=== PATIENT | female | born 1990 | race Caucasian/White ===

== ENCOUNTER 2017-04-09 15:40 | Inpatient (IN) ==
[2017-04-09] MEDS ORDERED: ONDANSETRON 4 MG/2 ML VIAL IV STA (16:23)
[2017-04-09] MEDS ORDERED: SODIUM CHLORIDE 0.9% 500 ML IV STA (16:23)
[2017-04-09] MEDS ORDERED: ONDANSETRON 4 MG/2 ML VIAL ONE (16:29)
[2017-04-09 16:53] LABS: Basophils # 0.1 10*3/uL (0.0-0.2); Basophils % 0.4 % (0.0-0.8); Eosinophils # 0.2 10*3/uL (0.0-0.87); Eosinophils % 1.1 % (0.00-10.9); Hematocrit 41.7 VOL% (35.7-47.0); Hemoglobin 14.6 GM/DL (12.0-16.0); Immature Granulocytes % 1.3 %; Immature Granulocytes Absolute 0.26 #; Lymphocytes # 2.1 10*3/uL (1.4-4.0); Lymphocytes % 10.8 % (21.3-54.2); Mean Corpuscular Hemoglobin 32 PG (27-34); Mean Corpuscular Volume 91.2 FL (87-102); Mean Platelet Volume 9.6 FL (9.6-12.0); Monocytes # 1.3 10*3/uL (0.11-0.8); Monocytes % 6.7 % (1.7-12.7); Neutrophils # 15.6 10*3/uL (1.4-7.4); Neutrophils % 79.7 % (38.7-73.9); Platelet Count 255 T/CUMM (130-400); Red Blood Count 4.57 MC/CUMM (3.8-5.5); Red Cell Distribution Width 13.1 % (9.3-17.3); White Blood Count 19.6 T/CUMM (4-12)
[2017-04-09 17:08] LABS: Apearance,Urine CLEAR (Clear); Urine Color Yellow (Yellow)
[2017-04-09 17:09] LABS: Bilirubin,Urine Negative (Negative); Blood, Urine Moderate mg/dL (Negative); Glucose,Urine (UA) Negative (Negative); Ketones,Urine Negative (Negative); Mucus,Urine Occasional /LPF (Occasional); Nitrite,Urine Negative (Negative); Protein,Urine 30 MG/DL; RBC,Urine 29 /HPF (0-4); Squamous Epithelial Cell,Urine Occasional /HPF (0-10); Urine Specific Gravity 1.017 (1.001-1.035); WBC,Urine 9 /HPF (0-6)
[2017-04-09 17:30] LABS: Albumin 3.8 G/DL (3.4-5.0); Bilirubin,Total 0.7 MG/DL (0.2-1.0); Calcium 8.7 MG/DL (8.5-10.1); Osmolality,Calculated 277.7 MOS/KG (273-304); Potassium 4.2 MMOL/L (3.5-5.1); Total Protein 7.1 G/DL (6.4-8.3)
[2017-04-09] MEDS: DEXTROSE 5% NACL 0.45% 1,000 ML IV SCH (22:05)
[2017-04-09] MEDS: PIPERACILLIN/TAZOBACTAM 3,375 MG in SODIUM CHLORIDE 0.9% 100 ML IV SCH (22:07)
[2017-04-09] MEDS ORDERED: INFLUENZA VIRUS VACCINE 0.5 ML SYRINGE IM ONE (23:51)
[2017-04-10] MEDS: PIPERACILLIN/TAZOBACTAM 3,375 MG in SODIUM CHLORIDE 0.9% 100 ML IV SCH ×3 (04:55→20:52)
[2017-04-10 08:41] LABS: Basophils # 0.1 10*3/uL (0.0-0.2); Basophils % 0.4 % (0.0-0.8); Eosinophils # 0.5 10*3/uL (0.0-0.87); Eosinophils % 3.9 % (0.00-10.9); Hemoglobin 14.2 GM/DL (12.0-16.0); Immature Granulocytes Absolute 0.12 #; Lymphocytes # 2.3 10*3/uL (1.4-4.0); Lymphocytes % 19.6 % (21.3-54.2); Mean Corpuscular HGB Conc 35.5 GM/DL (32-36); Mean Corpuscular Hemoglobin 32 PG (27-34); Mean Corpuscular Volume 91.1 FL (87-102); Mean Platelet Volume 9.8 FL (9.6-12.0); Monocytes # 0.8 10*3/uL (0.11-0.8); Monocytes % 6.6 % (1.7-12.7); Neutrophils # 8.1 10*3/uL (1.4-7.4); Neutrophils % 68.5 % (38.7-73.9); Platelet Count 254 T/CUMM (130-400); Red Blood Count 4.39 MC/CUMM (3.8-5.5); White Blood Count 11.8 T/CUMM (4-12)
[2017-04-10 08:50] LABS: Albumin 3.5 G/DL (3.4-5.0); Bilirubin,Total 1.6 MG/DL (0.2-1.0); Calcium 8.2 MG/DL (8.5-10.1); Osmolality,Calculated 280.4 MOS/KG (273-304); Potassium 4.1 MMOL/L (3.5-5.1); Total Protein 6.4 G/DL (6.4-8.3)
[2017-04-10] MEDS: ENOXAPARIN 40 MG/0.4 ML SYRINGE SUBCUT SCH (10:48)
[2017-04-10] MEDS: PANTOPRAZOLE 40 MG VIAL IV SCH (10:48)
[2017-04-10] MEDS: DEXTROSE 5% NACL 0.45% 1,000 ML IV SCH ×2 (10:49→17:37)
[2017-04-11] MEDS: DEXTROSE 5% NACL 0.45% 1,000 ML IV SCH ×2 (01:02→10:15)
[2017-04-11] MEDS: PIPERACILLIN/TAZOBACTAM 3,375 MG in SODIUM CHLORIDE 0.9% 100 ML IV SCH ×3 (05:01→22:50)
[2017-04-11] MEDS: ENOXAPARIN 40 MG/0.4 ML SYRINGE SUBCUT SCH (09:02)
[2017-04-11] MEDS: PANTOPRAZOLE 40 MG VIAL IV SCH (09:03)
[2017-04-11 11:52] LABS: Basophils # 0.1 10*3/uL (0.0-0.2); Basophils % 0.7 % (0.0-0.8); Eosinophils # 0.7 10*3/uL (0.0-0.87); Eosinophils % 5.6 % (0.00-10.9); Hematocrit 40.7 VOL% (35.7-47.0); Hemoglobin 14.3 GM/DL (12.0-16.0); Immature Granulocytes % 0.9 %; Lymphocytes # 2.7 10*3/uL (1.4-4.0); Lymphocytes % 23.5 % (21.3-54.2); Mean Corpuscular HGB Conc 35.1 GM/DL (32-36); Mean Corpuscular Hemoglobin 32 PG (27-34); Mean Corpuscular Volume 91.9 FL (87-102); Mean Platelet Volume 10.1 FL (9.6-12.0); Monocytes # 0.8 10*3/uL (0.11-0.8); Monocytes % 6.5 % (1.7-12.7); Neutrophils # 7.3 10*3/uL (1.4-7.4); Neutrophils % 62.8 % (38.7-73.9); Platelet Count 240 T/CUMM (130-400); Red Blood Count 4.43 MC/CUMM (3.8-5.5); White Blood Count 11.6 T/CUMM (4-12)
[2017-04-11 11:59] LABS: PT Patient Result 10.8 SECS
[2017-04-11 12:24] LABS: Albumin 3.5 G/DL (3.4-5.0); Bilirubin,Total 0.6 MG/DL (0.2-1.0); Calcium 8.3 MG/DL (8.5-10.1); Osmolality,Calculated 279.4 MOS/KG (273-304); Potassium 4.2 MMOL/L (3.5-5.1); Total Protein 6.6 G/DL (6.4-8.3)
[2017-04-12 05:46] LABS: Basophils # 0.1 10*3/uL (0.0-0.2); Basophils % 0.4 % (0.0-0.8); Eosinophils # 0.8 10*3/uL (0.0-0.87); Hemoglobin 13.6 GM/DL (12.0-16.0); Immature Granulocytes % 0.6 %; Lymphocytes # 4.1 10*3/uL (1.4-4.0); Lymphocytes % 25.2 % (21.3-54.2); Mean Corpuscular HGB Conc 34.9 GM/DL (32-36); Mean Corpuscular Hemoglobin 32 PG (27-34); Mean Corpuscular Volume 91.5 FL (87-102); Mean Platelet Volume 9.9 FL (9.6-12.0); Monocytes # 0.9 10*3/uL (0.11-0.8); Monocytes % 5.8 % (1.7-12.7); Neutrophils # 10.2 10*3/uL (1.4-7.4); Platelet Count 227 T/CUMM (130-400); Red Blood Count 4.26 MC/CUMM (3.8-5.5); White Blood Count 16.1 T/CUMM (4-12)
[2017-04-12 05:50] LABS: PT Patient Result 10.9 SECS
[2017-04-12] MEDS: PIPERACILLIN/TAZOBACTAM 3,375 MG in SODIUM CHLORIDE 0.9% 100 ML IV SCH ×3 (06:14→21:52)
[2017-04-12] MEDS: DEXTROSE 5% NACL 0.45% 1,000 ML IV SCH ×4 (06:17→21:52)
[2017-04-12 06:25] LABS: Albumin 3.2 G/DL (3.4-5.0); Bilirubin,Total 1.1 MG/DL (0.2-1.0); Calcium 8.5 MG/DL (8.5-10.1); Osmolality,Calculated 277.4 MOS/KG (273-304); Potassium 3.9 MMOL/L (3.5-5.1); Total Protein 6.5 G/DL (6.4-8.3)
[2017-04-12] MEDS: PANTOPRAZOLE 40 MG VIAL IV SCH (08:00)
[2017-04-12] MEDS ORDERED: PROPOFOL 200 MG/20 ML VIAL IV ONE (11:26)
[2017-04-12] MEDS ORDERED: LIDOCAINE 2% 5 ML VIAL ONE (11:26)
[2017-04-12] MEDS ORDERED: INDOMETHACIN SUPP 50 MG SUPP RECTAL ONE (12:20)
[2017-04-12] MEDS ORDERED: MIDAZOLAM 2 MG/2 ML VIAL ONE (12:22)
[2017-04-12] MEDS ORDERED: fentaNYL 100 MCG/2 ML VIAL ONE (12:22)
[2017-04-12] MEDS ORDERED: GLUCAGON 1 MG VIAL ONE (12:39)
[2017-04-12] MEDS: HYDROmorphone 2 MG/1 ML VIAL IV PRN (17:14)
[2017-04-12] MEDS: ONDANSETRON 4 MG/2 ML VIAL IV PRN (17:17)
[2017-04-13] MEDS: PIPERACILLIN/TAZOBACTAM 3,375 MG in SODIUM CHLORIDE 0.9% 100 ML IV SCH ×3 (05:57→21:31)
[2017-04-13] MEDS: DEXTROSE 5% NACL 0.45% 1,000 ML IV SCH ×3 (07:22→20:25)
[2017-04-13] MEDS ORDERED: TISSUE ADHESIVE 1 EACH APPLICATOR TOP ONE (08:19)
[2017-04-13] MEDS ORDERED: ONDANSETRON 4 MG/2 ML VIAL ONE (08:50)
[2017-04-13] MEDS ORDERED: fentaNYL 100 MCG/2 ML VIAL ONE (08:50)
[2017-04-13] MEDS ORDERED: PROPOFOL 200 MG/20 ML VIAL IV ONE (08:50)
[2017-04-13] MEDS ORDERED: MIDAZOLAM 2 MG/2 ML VIAL ONE (08:50)
[2017-04-13] MEDS ORDERED: GLYCOPYRROLATE 0.4 MG/2 ML VIAL ONE (08:50)
[2017-04-13] MEDS ORDERED: NEOSTIGMINE 10 MG/10 ML VIAL ONE (08:51)
[2017-04-13] MEDS ORDERED: ACETAMINOPHEN 1,000 MG/100 ML VIAL IV ONE (08:51)
[2017-04-13] MEDS: PANTOPRAZOLE 40 MG VIAL IV SCH (09:30)
[2017-04-13] MEDS: HYDROmorphone 2 MG/1 ML VIAL IV PRN ×2 (14:12→23:52)
[2017-04-13] MEDS: ONDANSETRON 4 MG/2 ML VIAL IV PRN ×2 (14:15→23:52)
[2017-04-14] MEDS: PIPERACILLIN/TAZOBACTAM 3,375 MG in SODIUM CHLORIDE 0.9% 100 ML IV SCH (05:00)
[2017-04-14] MEDS: PANTOPRAZOLE 40 MG VIAL IV SCH (08:00)
[2017-04-14] MEDS: DEXTROSE 5% NACL 0.45% 1,000 ML IV SCH (08:00)
[2017-04-14 11:23] VITALS: BP 131/89
== END 2017-04-14 11:52 | disposition home or self-care (01) | DRG 418 ==
LOC: EDUNIT# → EDBD → N.ED 15:40 → N.EDINP 18:19 → N.3E 20:32
PROVIDERS: ADMIT Surgery; ATTEND Surgery
PROC: LAPCHOL (2017-04-13 07:11)